=== PATIENT | male | born 1930 | race Caucasian/White ===

== ENCOUNTER 2019-06-23 06:56 | Emergency (ER) | payer OTHER, MEDICARE ==
[2019-06-23 07:40] VITALS: BMI 22.1
[2019-06-23] MEDS ORDERED: morphine CARPU-JECT 2 MG/1 ML DISP.SYRIN IVPUSH ONE (08:17)
--- NOTE | 2019-06-23 08:17 | PDOC ---
History of Present Illness - General Chief Complaint: Edema Stated Complaint: ARM SWELLING/CAT BITE Time Seen by Provider: 06/23/19 07:34 - History of Present Illness Initial Comments: 06/23/19 08:12 HPI: 89 y/o M with hx of CAD c/b MD s/p 4 stents, rheumatoid arthritis (on methotrexate), mild dementia presenting with right hand wrist pain and swelling x2 days. He was scratched by his cat earlier in the week and then he started developing pain, redness, edema of right hand and wrist tracking proximally to the elbow. He denies other trauma, fever, chills, cp, SOB, n/v. Of note, they called his primary doctor at the [place] yesterday and he was prescribed prednisone 2.5mg TID PMHx: as noted above ROS: as noted SHx: Denies tobacco use; occ alcohol use; no rec drugs Allergies: NKDA ROS: GENERAL/CONSTITUTIONAL: No fever or chills. No weakness. HEAD, EYES, EARS, NOSE AND THROAT: No change in vision. No ear pain or dischar ge. No sore throat. CARDIOVASCULAR: No chest pain or shortness of breath RESPIRATORY: No cough, wheezing, or hemoptysis. GASTROINTESTINAL: No nausea, vomiting, diarrhea or constipation. GENITOURINARY: No dysuria, frequency, or change in urination. MUSCULOSKELETAL: No joint or muscle swelling or pain. No neck or back pain. SKIN: +erythema, edema hand NEUROLOGIC: No headache, vertigo, loss of consciousness, or change in strength/sensation. ENDOCRINE: No increased thirst. No abnormal weight change HEMATOLOGIC/LYMPHATIC: No anemia, easy bleeding, or history of blood clots. ALLERGIC/IMMUNOLOGIC: No hives or skin allergy. PE: GENERAL: Awake, alert, and fully oriented, no acute distress HEAD: No signs of trauma, normocephalic, atraumatic EYES: EOMI, sclera anicteric, conjunctiva clear ENT: Auricles normal inspection, hearing grossly normal, nares patent, oropharynx clear without exudates. Moist mucosa NECK: Normal ROM, no lymphadenopathy LUNGS: No increased work of breathing, symmetrical chest rise, clear to auscultation bilaterally, no wheezes, crackles or rhonchi HEART: Regular rate, regular rhythm, normal S1 and S2, no murmur, peripheral pulses 2+ and equal bilaterally. ABDOMEN: Soft, nondistended, nontender, normoactive bowel sounds. No guarding, no rebound. No masses. No CVAT MUSCULOSKELETAL: right hand with erythema from MCP to mid forearm with significant edema of hand and wrist, ttp, decreased ROM of wrist, small scabbed over scratch without drainage, digits with FROM and no swelling or erythema, 2+ pulses radial and ulnar, sensation intact, compartments soft NEUROLOGICAL: Cranial nerves II through XII grossly intact. Normal speech, normal gait, no focal sensorimotor deficits SKIN: Warm, Dry, normal turgor, no rashes or lesions noted Past History - Past Medical History Allergies/Adverse Reactions: Allergies Allergy/AdvReac Type Severity Reaction Status Date / Time No Known Allergies Allergy Verified 06/23/19 07:42 Home Medications: Ambulatory Orders Folic Acid 06/23/19 Methotrexate Sodium [Methotrexate] 06/23/19 Methotrexate Sodium [Methotrexate] 06/23/19 - Psycho Social/Smoking Cessation Hx Smoking History: Unknown if ever smoked Have you smoked in the past 12 months: No Information on smoking cessation initiated: No Hx Alcohol Use: No (Denies) Drug/Substance Use Hx: No (Denies) *Physical Exam - Vital Signs Last Vital Signs Temp Pulse Resp BP Pulse Ox 98.7 F 71 16 156/75 100 06/23/19 07:52 06/23/19 07:52 06/23/19 07:52 06/23/19 07:52 06/23/19 07:37 ED Treatment Course - LABORATORY CBC & Chemistry Diagram: 06/23/19 08:18 06/23/19 08:18 - RADIOLOGY Radiology Studies Ordered: Category Date Time Status FOREARM- RIGHT [RAD] Stat Radiology 06/23/19 07:55 Ordered WRIST W/HAND-RIGHT* [RAD] Stat Radiology 06/23/19 07:55 Ordered Medical Decision Making - Medical Decision Making 06/23/19 08:16 89 y/o M with hx of CAD c/b MD s/p 4 stents, arthritis, mild dementia presenting with right hand wrist pain and swelling x2 days. VSS, AF. PE with right hand with erythema from MCP to mid forearm with significant edema of hand and wrist, ttp, decreased ROM of wrist, small scabbed over scratch without drainage, digits with FROM and no swelling or erythema, 2+ pulses radial and ulnar, sensation intact, compartments soft. DDx includes cellulitis, nec fasc, deep soft tissue infxn, septic arthritis -cbc, cmp, esr, crp, coags, t&s, bcx, ekg, cxr right hand/wrist -CT RUE 06/23/19 10:36 can be reached with h at [phone] 06/23/19 13:51 son to be reached at [phone] [facility] CT: FINDINGS: There is soft tissue edema seen from the distal forearm to the fingers. There are complex enhancing structures seen in the soft tissues posterior to the distal metacarpals. These could represent abscess formation or other etiologies The old fractures of the distal ulnar and of the distal radius were seen better on concurrent radiographs. Significant degenerative changes of the wrist joint again noted IMPRESSION: Differential diagnosis includes cellulitis with possible abscess formation. Other inflammatory or infectious etiologies should also be considered. Recommend clinical correlation and MRI performed with contrast for better characterization and better evaluation of possible necrotizing fasciitis. Consider consultation with hand surgeon s/p vanc/zosyn/clinda for empiric coverage concern for cat scratch disease given kitten 1 year old with increased risk of bortenella discussed with ortho surgeon oncall and hand is not covered; given no hand surgeon available will tx to [facility] Discussed with Dr Adonis Ribeiro from ortho at [facility] and accepted transfer Discussed with Dr Rabago ER attending and accpeted as well Discharge - Discharge Information Problems reviewed: Yes Clinical Impression/Diagnosis: Cellulitis Qualifiers: Site of cellulitis: extremity Site of cellulitis of extremity: upper extremity Laterality: right Qualified Code(s): L03.113 - Cellulitis of right upper limb Condition: Guarded Disposition: TRANSFER ACUTE CARE/OTHER HOSP - Follow up/Referral Referrals: Ree Riojas MD [Primary Care Provider] - - Patient Discharge Instructions - Post Discharge Activity - Transfer to Acute Care Facility Receiving Facility Name: [facility] Accepting Physician:: Dr Rabago (ER) and Dr Ribeiro (ortho)
[2019-06-23] MEDS ORDERED: MORPHINE SULFATE 2 MG/ML VIAL ONE ×2 (08:33→09:39)
[2019-06-23 09:16] LABS: BASO % 0.1 % (0-2.0); EOS % 0.1 % (0-4.5); HEMATOCRIT 37.8 % (35.4-49); HEMOGLOBIN 12.5 GM/dL (11.7-16.9); LYMPH % 8.1 % (8-40); MCHC 33.1 g/dl (32.0-35.9); MEAN CELL VOLUME 90.7 fl (80-96); MEAN PLT VOLUME 8.8 fl (7.5-11.1); MONO % 11.6 % (3.8-10.2); NEUT % 80.1 % (42.8-82.8); PLATELET COUNT 132 K/MM3 (134-434); RBC 4.17 M/mm3 (4.00-5.60); RDW 15.6 % (11.9-15.9); WHITE BLOOD COUNT 8.4 K/mm3 (4.0-10.0)
[2019-06-23] MEDS ORDERED: morphine CARPU-JECT 4 MG/1 ML DISP.SYRIN IVPUSH ONE (09:38)
--- NOTE | 2019-06-23 09:55 | PDOC ---
Attending Attestation - Resident Resident Name: Flores Solo - ED Attending Attestation I have performed the following: I have examined & evaluated the patient, The case was reviewed & discussed with the resident, I agree w/resident's findings & plan, Exceptions are as noted - HPI HPI: 06/23/19 09:48 89yoM denies PMHx presents w/ c/o R wrist pain swelling erythema progressive x 3 days after his cat scratched him. + multiple puncture wounds to wrist. 1yo cat, fully vaccinated, regular veterinary care. - Physicial Exam PE: 06/23/19 09:55 NAD R hand/wrist dorsum w/ swelling, ertyhema, warmh. + reduced ROM R wrist. A&O x 3 - Medical Decision Making 06/23/19 09:58 89yoM w/ cellulitis to R wrist after cat scratch. ? septic joint vs. pain from swellin/inflammatin. - labs - abx - ct wrist r/o FB - dispo per results. Discharge - Discharge Information Problems reviewed: Yes Clinical Impression/Diagnosis: Cellulitis - Follow up/Referral Referrals: Ree Riojas MD [Primary Care Provider] - - Patient Discharge Instructions - Post Discharge Activity
[2019-06-23 10:05] LABS: ALBUMIN 3.5 g/dl (3.4-5.0); BILIRUBIN,TOTAL 1.3 mg/dL (0.2-1); CALCIUM 8.5 mg/dL (8.5-10.1); CREATININE 0.8 mg/dL (0.55-1.3); TOT PROT 6.4 g/dl (6.4-8.2)
[2019-06-23] MEDS ORDERED: VANCOMYCIN 1 GM PREMIX - 1 GM/200 ML BAG IVPB ONE (10:05)
[2019-06-23] MEDS ORDERED: PIPERACILLIN/TAZOB 4.5 GM 4.5 GM in DEXTROSE 5%-WATER 100 ML IVPB ONE (10:05)
[2019-06-23] MEDS ORDERED: PIPERACILLIN/TAZOB 4.5 GM 4.5 GM/100 ML BAG IVPB ONE (10:12)
[2019-06-23] MEDS ORDERED: VANCOMYCIN 1 GRAM (PRE-DOCKED) 1,000 MG/250 ML BAG IVPB ONE (10:23)
[2019-06-23 11:00] LABS: ERYTHROCYTE SEDIMENTATION RATE 28 mm/hr (0-20)
[2019-06-23] MEDS ORDERED: AZITHROMYCIN IVPB 500 MG in DEXTROSE 5%-WATER - 250 ML IVPB ONE (11:24)
[2019-06-23] MEDS ORDERED: HYDROmorphone HCL CARPU-JECT 2 MG/1 ML DISP.SYRIN IVPUSH ONE ×2 (11:24→13:34)
[2019-06-23] MEDS ORDERED: HYDROmorphone HCl 2 MG/ML VIAL ONE ×2 (11:25→13:37)
[2019-06-23] MEDS ORDERED: AZITHROMYCIN IVPB 500 MG/250 ML BAG IVPB ONE (11:34)
[2019-06-23] MEDS ORDERED: CLINDAMYCIN 900 MG PREMIX IVPB 900 MG/50 ML BAG IVPB ONE ×2 (12:03→12:59)
[2019-06-23 12:47] LABS: INR 1.19 (0.83-1.09); PROTHROMBIN TIME (PATIENT) 14.1 SEC (9.7-13.0)
[2019-06-23 12:49] LABS: ACTIVATED PTT 33.7 SECONDS (25.2-36.5)
[2019-06-23 13:35] VITALS: BP 113/66; PULSE 75
[2019-06-23 14:06] VITALS: TEMP 97.9
--- NOTE | 2019-06-25 17:37 | EKG ---
Test Reason : Blood Pressure : / mmHG Vent. Rate : 065 BPM Atrial Rate : 065 BPM P-R Int : 200 ms QRS Dur : 102 ms QT Int : 382 ms P-R-T Axes : 000 015 -17 degrees QTc Int : 397 ms NORMAL SINUS RHYTHM POSSIBLE INFERIOR INFARCT (CITED ON OR BEFORE 20-OCT-2010) POSSIBLE ANTERIOR INFARCT , AGE UNDETERMINED ABNORMAL ECG WHEN COMPARED WITH ECG OF 20-OCT-2010 07:56, T WAVE VARIATION Confirmed by TRACEY LANDEROS, OTONIEL ([id number]) on 06/25/2019 5:37:17 PM Referred By: Confirmed By:OTONIEL WEBB MD
== END 2019-06-23 14:32 | disposition short-term general hospital (02) ==
LOC: JER 06:56
PROC: 3E033GC Introduction of Other Therapeutic Substance into Peripheral Vein, Percutaneous Approach (ICD-10-PCS; principal; 2019-06-23)
DX: L03.113 Cellulitis of right upper limb (principal)
CPT/HCPCS: 36415; 73090-TC-RT-FY; 73110-TC-RT-FY; 73130-TC-RT-FY; 73201-TC-RT; 80053; 85025; 85610; 85651; 85730; 86140; 86850; 86900; 86901; 87040; 93005; 93010; 96365; 96367; 96368; 96375; 96376; 99285-25; Q9967